=== PATIENT | male | born 1965 | race African-American/Black ===

== ENCOUNTER → 2020-05-18 15:11 | Outpatient (BNVA) | payer OTHER, SELFPAY | PROVIDERS: PCP Nurse Practitioner Family; Referring Provider Nurse Practitioner Family; Visit Provider Physician Assistant | DX: Z76.89 Persons encountering health services in other specified circumstances (principal) ==

== ENCOUNTER 2020-07-13 13:32 | Outpatient (REF) | payer OTHER, SELFPAY ==
--- NOTE | 2020-07-13 13:38 | XR_ITS ---
EXAMINATION: XR CHEST CLINICAL INFORMATION: Z86.16 - Personal history of COVID-19 COMPARISON: None TECHNIQUE: 2 views of the chest were obtained. FINDINGS: The lungs are clear. There is no airspace consolidation or groundglass opacity or effusion. The heart is normal in size. The vascularity is normal. The hilar and mediastinal contours and visualized bony structures are unremarkable. XR/XR chest 2V IMPRESSION: Unremarkable examination.
--- NOTE | 2020-07-13 13:42 | XR_ITS ---
EXAMINATION: BILATERAL KNEE RADIOGRAPHS. CLINICAL INFORMATION: Pain in left knee. Pain in right knee. COMPARISON: None TECHNIQUE: AP weightbearing, lateral, sunrise, notch radiographs of the left and right knees. FINDINGS: Right knee: The medial compartment demonstrates marked joint space narrowing, subchondral sclerosis and mild osteophytosis. The medial compartment demonstrates mild joint space narrowing, mild osteophytosis and mild subchondral sclerosis. The patellofemoral compartment demonstrates bilateral facet and moderate osteophytosis and mild joint space narrowing. No gross knee effusion is visualized. No fractures are noted. Left knee: Anterior cruciate ligament graft interference screws are noted. The medial compartment demonstrates marked joint space narrowing, moderate subchondral sclerosis and moderate osteophytosis. Lateral compartment demonstrates moderate joint space narrowing, subchondral sclerosis and mild osteophytosis. The patellofemoral compartment demonstrates mild bilateral facet osteophytosis and mild joint space narrowing. A probable suprapatellar bursal effusion is noted as suggested on the lateral radiograph. No fractures are visualized. XR/XR knee RT 4V IMPRESSION: Right knee: 1. Advanced tricompartmental osteoarthritis with findings most pronounced in the medial compartment. Left knee: 1. Advanced tricompartmental osteoarthritis with findings most pronounced in the medial compartment. 2. Status post ACL repair.
--- NOTE | 2020-07-13 13:42 | XR_ITS ---
EXAMINATION: BILATERAL KNEE RADIOGRAPHS. CLINICAL INFORMATION: Pain in left knee. Pain in right knee. COMPARISON: None TECHNIQUE: AP weightbearing, lateral, sunrise, notch radiographs of the left and right knees. FINDINGS: Right knee: The medial compartment demonstrates marked joint space narrowing, subchondral sclerosis and mild osteophytosis. The medial compartment demonstrates mild joint space narrowing, mild osteophytosis and mild subchondral sclerosis. The patellofemoral compartment demonstrates bilateral facet and moderate osteophytosis and mild joint space narrowing. No gross knee effusion is visualized. No fractures are noted. Left knee: Anterior cruciate ligament graft interference screws are noted. The medial compartment demonstrates marked joint space narrowing, moderate subchondral sclerosis and moderate osteophytosis. Lateral compartment demonstrates moderate joint space narrowing, subchondral sclerosis and mild osteophytosis. The patellofemoral compartment demonstrates mild bilateral facet osteophytosis and mild joint space narrowing. A probable suprapatellar bursal effusion is noted as suggested on the lateral radiograph. No fractures are visualized. XR/XR knee LT 4V IMPRESSION: Right knee: 1. Advanced tricompartmental osteoarthritis with findings most pronounced in the medial compartment. Left knee: 1. Advanced tricompartmental osteoarthritis with findings most pronounced in the medial compartment. 2. Status post ACL repair.
[2020-07-13 15:06] LABS: Prostate Specific Antigen Scr 3.29 ng/mL (<0.05-4.0)
== END 2020-07-13 13:33 | disposition home or self-care (01) ==
LOC: HO.HMGCX 13:32
PROVIDERS: PCP Nurse Practitioner Family; Visit Provider Nurse Practitioner Family
DX: M25.562 Pain in left knee (principal); M25.561 Pain in right knee; R05 Cough; Z86.16 Personal history of COVID-19; Z12.5 Encounter for screening for malignant neoplasm of prostate
CPT/HCPCS: 36415; 71046; 73564; 84153

== ENCOUNTER 2020-08-14 06:28 | Day surgery (SDC) | payer OTHER, SELFPAY ==
[2020-08-08 13:35] VITALS: BMI 35.5
--- NOTE | 2020-08-10 13:54 | HO.ANESPROP2 ---
Documented by User: Elsy Sanchez 08/10/20 13:58 HPI - Anesthesia Eval Consult details Narrative: 54yo M for Upper Endoscopy and Colonoscopy [facility] Past Medical History Medical History (Updated 08/08/20 @ 13:33 by Maria A Flowers) Bilateral knee pain Family hx of colon cancer GERD (gastroesophageal reflux disease) Hemorrhoids History of colon polyps History of COVID-19 Family History Family History Mother HTN (hypertension) Maternal Uncle Cancer Father No problems noted. Surgical History Surgical History H/O left knee surgery H/O right knee surgery History of colonoscopy History of foot surgery Hx of tonsillectomy Social History Social History Household Members: Spouse Are you a primary career and guidance counselor to a significant other at home: No Do you presently have visiting nurse or other home services: No Alcohol intake: current Alcohol intake frequency: holidays/special occasions only Smoking Status: Never smoker Use of substances other than those prescribed or required for medical reasons: No Have you been hit, kicked, punched, or otherwise hurt by someone within the past year? 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, works with incarcerated for teenagers Meds Allergies Allergy/AdvReac Type Severity Reaction Status Date / Time No Known Allergies Allergy Verified 08/14/20 06:39 Exam Exam Date and Time: August 10, 2020 1354 Height,Weight and Vital Signs: Height 6 ft 2 in Weight 125.645 kg Assessment and Plan Assessment Anesthesia Assessment: Chart Reviewed Documented by User: Lynne Hickman 08/14/20 07:22 [facility] Past Medical History Medical History (Updated 08/08/20 @ 13:33 by Maria A Flowers) Bilateral knee pain Family hx of colon cancer GERD (gastroesophageal reflux disease) Hemorrhoids History of colon polyps History of COVID-19 Family History Family History Mother HTN (hypertension) Maternal Uncle Cancer Father No problems noted. Surgical History Surgical History H/O left knee surgery H/O right knee surgery History of colonoscopy History of foot surgery Hx of tonsillectomy Social History Social History Household Members: Spouse Are you a primary career and guidance counselor to a significant other at home: No Do you presently have visiting nurse or other home services: No Alcohol intake: current Alcohol intake frequency: holidays/special occasions only Smoking Status: Never smoker Use of substances other than those prescribed or required for medical reasons: No Have you been hit, kicked, punched, or otherwise hurt by someone within the past year? 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, works with incarcerated for teenagers Meds Allergies Allergy/AdvReac Type Severity Reaction Status Date / Time No Known Allergies Allergy Verified 08/14/20 06:39 Exam Airway Mallampati Class: II TM Dist: >3cm Neck ROM: Full Heart: RRr Lungs: CtA BL Assessment and Plan Assessment Anesthesia Assessment: Anesthesia Plan Discussed and Chart Reviewed Final Anesthetic Review NPO: Yes ASA Class: II Final Preanesthetic Review: Meds/Allgs Chart Reviewed and Consent Obtained/Reviewed Patient Risk: Intermediate Procedure Risk: Intermediate Anesthetic Plan Anesthetic Plan: MAC: Disposition: Standard PACU
[2020-08-14 06:39] VITALS: BP 148/92; PULSE 86; RESP 18; TEMP 35.8; O2SAT 95
[2020-08-14] MEDS: Lactated Ringers 1,000 ML 100 ML IVCONT (06:59)
--- NOTE | 2020-08-14 07:20 | MHC.SHP ---
Pre-Procedural Eval Section A The patient is an INPATIENT: No The History & Physical has been completed within 30 days and I have reviewed it.: No Section B Chief Complaint: Screening,Hx of Colon Polyps Details of Present Illness: History of colon polyps, family history of multiple cancers. Relevant Family History (Specify if Yes): Yes Relevant Social History: None Present Medications: see Short Stay Collaborative assessment Medical History: Significant History (Bilateral knee pain Family hx of colon cancer GERD (gastroesophageal reflux disease) Hemorrhoids History of colon polyps) History of Previous Operations: Relevant previous surgery/procedure and date(s) (H/O left knee surgery H/O right knee surgery History of colonoscopy History of foot surgery Hx of tonsillectomy) Allergies: Allergies Allergy/AdvReac Type Severity Reaction Status Date / Time No Known Allergies Allergy Verified 08/14/20 06:39 Review of Systems Sugical H&P ROS: Negative: Constitution, Cardiovascular, Respiratory and Gastrointestinal Exam Surgical H&P Exam: Normal: Heart, Normal: Lungs, Normal: Extremities and Normal: Abdomen Plan Diagnosis/Plan: Unchanged I have reviewed the history and physical and performed a pertinent physical examination on my patient. No changes have occurred unless specified.
--- NOTE | 2020-08-14 07:21 | P.OP_ITS ---
Operative Note Operative Note Date of Service: 08/14/20 Narrative: Pre-op diagnosis: Colon cancer screening, hx of colon polyps, GERD Post-op diagnosis: other (Gastritis, gastric nodule, hiatal hernia, GERD, colon polyp) Procedure: FLEXIBLE TRANSORAL UPPER GASTROINTESTINAL ENDOSCOPY WITH BIOPSIES AND COLONOSCOPY TILL CECUM WITH SNARE POLYPECTOMY UPPER ENDOSCOPY Consent: Indications for the procedure and potential complications of bleeding, perforation, reaction to medications and missed diagnosis were discussed with the patient and informed consent was obtained. Instrument: Olympus GIF H 190 mid size upper endoscope Monitoring: Vital signs and clinical assessment, continuous EKG monitoring, Pulse oximetry, Carbon Dioxide monitoring and blood pressure monitoring were done throughout the procedure. Procedure: The patient was placed in the left lateral decubitis position and pre-procedure medications were administered and a bite block was placed. The endoscope was inserted into the mouth and advanced under direct vision to the third part of duodenum. A careful inspection was made as the upper endoscope was withdrawn including a retroflexed examination of the proximal stomach; Findings and interventions are described below. Findings: Larynx: Normal Esophagus: GE junction at 42 cms, small hiatal hernia 40 - 42 cms. Irregular Z line - biopsied to check for Jernigan's. Stomach: A 1 cms benign appearing nodule in the antrum with central c alcification - biopsied. Moderate gastric antral erythema with 2-4 mm chronic appearing erosions. Biopsies were obtained. Grade 2 flap valve on retroflexed examination of the cardia. Duodenum: Normal bulb and descending duodenum Intervention: Biopsies as noted above COLONOSCOPY PROCEDURE NOTE Consent: Indications for the procedure and potential complications of bleeding, perforation, reaction to medications and missed diagnosis were discussed with the patient and informed consent was obtained. Instrument: Olympus PCF H 190 L variable stiffness pediatric colonoscope Monitoring: Vital signs and clinical assessment, intermittent blood pressure monitoring, continuous EKG monitoring, Pulse oximetry and Carbon Dioxide monitoring were done throughout the procedure. Colon withdrawl time was 24 minutes. Procedure: The patient was placed in the left lateral decubitis position and pre-procedure medications were administered. After a digital rectal examination of the ano-rectum, the video colonoscope was inserted into the rectum and advanced through the colon to the cecum. The colonoscope was slowly withdrawn in a retrograde panoramic fashion and the colon mucosa was carefully examined including a retroflexed view of the rectum. Findings and interventions are described below. Procedure Difficulty: : Without difficulty Findings: Terminal Ileum: Not evaluated Cecum: Normal Ascending Colon: Normal Transverse Colon: An 18-20 mm sessile polyp removed with a hot snare Descending Colon: Normal Sigmoid Colon: Normal Rectum: Normal Ano-rectum: Moderate internal hemorrhoids Colon preparation: Good Impression and Post Procedure Diagnosis: Endoscopy Findings: ESOPHAGUS: Small hiatal hernia, irregular Z line. STOMACH: A 1 cms benign appearing nodule in the antrum with central calcification - biopsied. Moderate gastric antral erythema with 2-4 mm chronic appearing erosions. Biopsies were obtained. Colonoscopy Findings: One 18-20 mm polyp removed Plan: Await pathology results Patient has an appointment on 09/04/20 in the [facility] with JOSE LUIS Gordon. Repeat Colonoscopy interval based on path results - in 3 years if polyps are adenomatous and 5 years if polyps are hyperplastic (due to past hx of colon polyps). Above findings were reviewed with the patient and colon polyps handout was given in the discharge area Surgeon: Sebastian Gomes MD Anesthesia: MAC (Dr Del Real) Estimated blood loss (mL): 0 Pathology: other (A. Gastric antrum, B. Gastric nodule, C. Distal esophagus, D. TC polyp x 1) Condition: stable Disposition: PACU
[2020-08-14 08:36] VITALS: BP 116/72; PULSE 74; RESP 16; TEMP 36.8; O2SAT 98
[2020-08-14 08:51] VITALS: BP 127/85; PULSE 65; RESP 16; O2SAT 98
--- NOTE | 2020-08-14 09:02 | PC.NURSE ---
0900AWAKE ALERT AMINA PO NO NV MONITORS AND IVF DCD ASST OOB CH STEADY IV DCD DRESSED SELF AT BS CALL HERN[facility]NDEZ IN [place]. PLAN TO AMB TO DC
--- NOTE | 2020-08-14 11:01 | HO.POSTANES ---
Post Anesthesia Evaluation Post Anesthesia Evaluation Vital Signs: Vital Signs Temp Pulse Resp BP Pulse Ox 08/14/20 08:51 98.3 F 65 16 127/85 98 08/14/20 08:36 98.3 F 74 16 116/72 98 08/14/20 06:39 96.5 F L 86 18 148/92 H 95 Anesthesia: Monitored Mental Status: Awake Pain Control: Satisfactory Nausea/Vomiting: None Hydration: Adequate Anesthesia-Related Issues: No Anes. Related Issues
== END 2020-08-14 09:22 | disposition home or self-care (01) ==
PROVIDERS: PCP Nurse Practitioner Family; Visit Provider Internal Medicine Gastroenterology
PROC: (CPT 43239; principal; 2020-08-14 07:30)
DX: Z12.11 Encounter for screening for malignant neoplasm of colon (principal); D12.3 Benign neoplasm of transverse colon; K21.9 Gastro-esophageal reflux disease without esophagitis; K29.70 Gastritis, unspecified, without bleeding; K31.89 Other diseases of stomach and duodenum; K44.9 Diaphragmatic hernia without obstruction or gangrene; Z86.010 Personal history of colon polyps
CPT/HCPCS: 43239; 45385; 88305; 88342

== ENCOUNTER 2021-07-03 10:16 | Outpatient (REF) | payer OTHER, SELFPAY ==
[2021-07-03 11:15] LABS: Appearance Urine CLEAR; Color Urine YELLOW; Glucose Urine UA NEG (NEG); Leukocyte Esterase Urine NEG (NEG); Nitrite Urine NEG (NEG); Specific Gravity - Urine 1.025 (1.005-1.025); Urine Blood NEG (NEG); Urine Ketones NEG (NEG); Urine Protein NEG (NEG-TRACE)
[2021-07-03 11:52] LABS: Alanine Aminotransferase 42 U/L (0-40); Albumin Level 4.6 g/dL (3.5-5.0); Alkaline Phosphatase 86 U/L (39-117); Anion Gap 11 (12-20); Aspartate Amino Transferase 27 U/L (5-37); Bilirubin Total 0.4 mg/dL (0.0-1.0); Blood Urea Nitrogen 11 mg/dL (9-16); Calcium 10.1 mg/dL (8.4-10.2); Carbon Dioxide 29 mmol/L (22-29); Chloride 104 mmol/L (96-108); Cholesterol 215 mg/dL; Estimated Glomerular Filt Rate > 60; Glucose Fasting 111 mg/dL (60-99); HDL Cholesterol 51 mg/dL; LDL Cholesterol Calculated 148 mg/dl; Potassium 4.4 mmol/L (3.3-5.1); Sodium 140 mmol/L (135-145); Total Protein 7.4 g/dL (6.5-8.0); Triglycerides 81 mg/dL
[2021-07-03 12:04] LABS: Prostate Specific Antigen Scr 1.53 ng/mL (<0.05-4.0); TSH reflex Free T4 0.56 uIU/mL (0.32-4.0)
== END 2021-07-03 10:17 | disposition home or self-care (01) ==
LOC: HO.HMGCLDS 10:16
PROVIDERS: PCP Nurse Practitioner Family; Visit Provider Nurse Practitioner Family
DX: Z00.00 Encounter for general adult medical examination without abnormal findings (principal); Z12.5 Encounter for screening for malignant neoplasm of prostate
CPT/HCPCS: 36415; 80053; 80061; 81003; 84153; 84443